=== PATIENT | male | born 1985 | race American Indian/Alaskan Native ===

== ENCOUNTER 2022-03-05 08:00 | Emergency (ER) | payer OTHER ==
[2022-03-05 08:05] VITALS: BP 139/81
== END 2022-03-05 19:00 | disposition left against medical advice (07) ==
LOC: ED 08:00
DX: D57.00 Hb-SS disease with crisis, unspecified (principal); Z53.21 Procedure and treatment not carried out due to patient leaving prior to being seen by health care provider